=== PATIENT | female | born 1955 | race Caucasian/White ===

== ENCOUNTER 2017-10-30 05:28 | Observation (INO) | payer OTHER ==
--- NOTE | 2017-10-30 06:23 | C.PDOC ---
History Of Present Illness 62 year old female presents to the ER with a complaint of a cough with sputum for the past 3 weeks. Patient has not seen her PMD because she believed it was just a cold; she came in today because she woke up with right sided pleuritic pain. Denies fever or chills. Chief Complaint (Nursing): Chest Pain History Per: Patient History/Exam Limitations: no limitations Onset/Duration Of Symptoms: Days Current Symptoms Are (Timing): Still Present Associated Symptoms: denies: Nausea, Dyspnea, Diaphoresis, Syncope Modifying Factors: None Exacerbating Factors: None Alleviating Factors: None Recent travel outside of the [place]: No Past Medical History Reviewed: Historical Data, Nursing Documentation, Vital Signs Vital Signs: Last Vital Signs Temp 98.1 F 10/30/17 05:45 Pulse 92 H 10/30/17 05:45 Resp 18 10/30/17 05:45 BP 150/70 10/30/17 05:45 Pulse Ox 95 10/30/17 06:26 - Medical History PMH: Asthma Surgical History: Cholecystectomy Family History: States: Unknown Family Hx - Social History Hx Alcohol Use: No Hx Substance Use: No - Immunization History Hx Tetanus Toxoid Vaccination: No Hx Influenza Vaccination: Yes Hx Pneumococcal Vaccination: No Review Of Systems Constitutional: Negative for: Fever, Chills ENT: Negative for: Throat Pain Respiratory: Positive for: Cough, Pleuritic Pain (Right sided), Sputum Gastrointestinal: Negative for: Nausea, Vomiting Physical Exam - Physical Exam Appears: Non-toxic Skin: Normal Color, Warm, Dry Head: Atraumatic, Normacephalic Eye(s): bilateral: Normal Inspection Ear(s): Bilateral: Normal Oral Mucosa: Moist Throat: Normal, No Erythema, No Exudate Neck: Normal, Supple Chest: Symmetrical, No Tenderness Cardiovascular: Rhythm Regular Respiratory: Decreased Breath Sounds, No Rales, No Rhonchi, No Wheezing Gastrointestinal/Abdominal: Soft, No Tenderness Neurological/Psych: Oriented x3, Normal Speech ED Course And Treatment ECG: Interpreted By Me, Viewed By Me ECG Rhythm: Sinus Rhythm ECG Interpretation: Normal Interpretation Of ECG: No acute changes. Rate From EC O2 Sat by Pulse Oximetry: 95 (Room air) Pulse Ox Interpretation: Normal - Radiology CXR: Interpreted by Me, Viewed By Me CXR Interpretation: Yes: No Acute Disease. No: Infiltrates Progress Note: Blood work, EKG, and CXR ordered. Disposition - Disposition Disposition Time: 07:00 Condition: FAIR Forms: [facility] (Serbian) - Clinical Impression Clinical Impression: Chest pain - PA / [employer] / Resident Statement MD/DO has reviewed & agrees with the documentation as recorded. - Scribe Statement The provider has reviewed the documentation as recorded by the Scribe Andres Patel All medical record entries made by the Scribe were at my direction and personally dictated by me. I have reviewed the chart and agree that the record accurately reflects my personal performance of the history, physical exam, medical decision making, and the department course for this patient. I have also personally directed, reviewed, and agree with the discharge instructions and disposition. Physician Patient Turnover Patient Signed Over To: Yamel Sierra Handoff Comments: labs and dispo
[2017-10-30 07:10] LABS: BASO # 0.1 K/uL (0.0-0.2); BASO % 0.5 % (0.0-2.0); EOS # 0.1 K/uL (0.0-0.7); EOS % 0.5 % (0.0-4.0); HEMOGLOBIN 11.7 g/dL (11.0-16.0); LYMPH # 1.3 K/uL (1.0-4.3); LYMPH % 9.7 % (20.0-40.0); MEAN CELL VOLUME 86.4 fL (81.0-99.0); MEAN CORPUSCULAR HEMOGLOBIN 29.4 pg (27.0-31.0); MEAN CORPUSCULAR HGB CONC 34.1 g/dL (33.0-37.0); MONO # 0.8 K/uL (0.0-0.8); NEUT # 11.4 K/uL (1.8-7.0); NEUT % 83.3 % (50.0-75.0); PLATELET COUNT 273 K/uL (130-400); RBC 3.98 Mil/uL (3.80-5.20); RED CELL DISTRIBUTION WIDTH 13.3 % (11.5-14.5); WHITE BLOOD COUNT 13.7 K/uL (4.8-10.8)
[2017-10-30 07:31] LABS: INR 1.1; PROTHROMBIN TIME 12.1 SECONDS (9.7-12.2)
[2017-10-30 07:39] LABS: ALB/GLOB RATIO 0.9 (1.0-2.1); ALBUMIN 4.1 g/dL (3.5-5.0); ALT/SGPT 24 U/L (9-52); AST/SGOT 37 U/L (14-36); BLOOD UREA NITROGEN 12 mg/dL (7-17); CALCIUM 9.3 mg/dl (8.6-10.4); GFR AFRICAN-AMERICAN > 60; GFR NON-AFRICAN AMERICAN > 60
[2017-10-30 07:48] LABS: CK-MB 0.39 ng/mL (0.0-3.38)
[2017-10-30] MEDS ORDERED: MethylPREDNISolone 40 mg Vial IVP STA (07:54)
[2017-10-30] MEDS ORDERED: Albuterol 0.083% Inhal Sol (2.5 mg/3 mL) UD IH STA (07:54)
[2017-10-30] MEDS ORDERED: Albuterol-Ipratrop 3 mg / 0.5 (3 ml) UD ONE (08:01)
[2017-10-30 08:07] LABS: ANISOCYTOSIS SLIGHT; BANDS 4 % (0-2); LYMPHOCYTE 9 % (20-40); MONOCYTE 3 % (0-10); NEUTROPHIL 82 % (50-75); PLATELET ESTIMATE NORMAL (NORMAL); REACTIVE LYMPHOCYTES 2 % (0-0); TOTAL CELLS COUNTED 100; TOXIC GRANULATION PRESENT
[2017-10-30 08:08] LABS: HYPOCHROMIC SLIGHT; LARGE PLATELETS PRESENT; POLYCHROMIC SLIGHT
[2017-10-30] MEDS ORDERED: Albuterol 0.083% Inhal Sol (2.5 mg/3 mL) UD ONE (08:12)
[2017-10-30] MEDS ORDERED: Iodixanol 320 MG/ML 100 ML BOTTLE IV ONE (08:39)
--- NOTE | 2017-10-30 08:40 | RAD ---
Chest x-ray single frontal view History: Pleuritic chest pain. Comparison: None available. Findings: Mild venous congestion. Mild patchy increased markings at the lung bases. Degenerative changes in the spine and shoulders. Impression: Mild venous congestion. Mild patchy increased markings at the lung bases. If there is concern for rib deformity, correlation with rib series would be helpful.
--- NOTE | 2017-10-30 09:41 | CT ---
PROCEDURE: CT Chest with contrast (Pulmonary Angiogram) HISTORY: Pleuritic chest pain. COMPARISON: Comparison made with chest radiograph obtained earlier same day. TECHNIQUE: Axial computed tomography images were obtained of the chest in the pulmonary arterial phase of enhancement. Coronal and sagittal reformatted images were created and reviewed. Intravenous contrast dose: 100 cc Visipaque 320 contrast material. Radiation dose: Total exam DLP = is 170.47 mGy-cm. This CT exam was performed using one or more of the following dose reduction techniques: Automated exposure control, adjustment of the mA and/or kV according to patient size, and/or use of iterative reconstruction technique. FINDINGS: PULMONARY ARTERIES: The visualized pulmonary trunk, right and left main, lobar, segmental and proximal subsegmental branches of the pulmonary arteries are well opacified with no definitive filling defects seen to suggest central pulmonary embolus. The more distal branches are poorly delineated. . AORTA: Ascending thoracic aorta measures approximately 3.05 cm and descending thoracic aorta measures approximately 2.1 cm. . Right brachiocephalic and common carotid artery arise from a common trunk. LUNGS: Atelectasis and/or infiltrate right middle lobe. Multifocal nodular and ground-glass opacities seen in the right lower and upper and left upper lobes concerning for a developing multifocal infiltrates. PLEURAL SPACES: Unremarkable. No effusion or pneumothorax. HEART: Heart is mildly enlarged. No significant pericardial effusion. LYMPH NODES: There is a small sub carinal lymph node measuring approximately 9 mm. Small bilateral. There is a small approximately 13 mm right hilar lymph node with a 2nd adjacent right hilar lymph node measuring 9.2 mm. . There is also a small 10 mm left AP window lymph node. Central airways are midline and patent. No large central endoluminal lesions. BONES, CHEST WALL: Mild multilevel degenerative spondylosis of the thoracic spine. No acute compression fractures no retropulsed fragments. Vertebral bodies exhibit normal stature. OTHER FINDINGS: Unremarkable. IMPRESSION: No evidence of acute central pulmonary embolus. There are atelectatic and or infiltrate changes seen in the right middle lobe with nodular and ground-glass opacities in the right lower and right upper lobe as well as left upper lobe concerning for developing multifocal pneumonia.
[2017-10-30] MEDS ORDERED: Azithromycin 500 MG in Sodium Chloride 0.9% 250 ML IVPB STA (09:57)
[2017-10-30] MEDS ORDERED: cefTRIAXone IV 1 gm in Dextros 50 ML IVPB ONE (10:03)
[2017-10-30] MEDS ORDERED: Azithromycin 500mg/250ML NS 500 MG/250 ML BAG IVPB ONE (10:03)
[2017-10-30 10:30] LABS: URINE BILIRUBIN NEGATIVE (NEGATIVE); URINE BLOOD NEGATIVE (NEGATIVE); URINE CLARITY Clear (Clear); URINE COLOR Colorless (YELLOW); URINE GLUCOSE (UA) NORMAL (Normal); URINE LEUKOCYTE ESTERASE NEG Leu/uL (Negative); URINE PROTEIN NEGATIVE (NEGATIVE); URINE UROBILINOGEN NORMAL mg/dL (0.2-1.0)
--- NOTE | 2017-10-30 10:57 | CP.PCM.HP ---
<Belkis Anne - Last Filed: 10/30/17 11:31> History of Present Illness - History of Present Illness History of Present Illness: Chief Complaint: productive cough Ms. Oliveira is a 62 year old Female with PMH of Asthma who presents to the ED with shortness of breath, productive cough, and generalized weakness. Patient reported feeling ill 3-4 weeks ago, she recovered without any medical intervention. However, her became sick the last 3-4 weeks. Around that time, she started to have the following symptoms: admitted to chills, productive cough with yellow sputum, generalized fatigue and weakness, pleuritic chest pain upon deep inspiration and cough. She did not take any medications. 12 point ROS unremarkable, unless noted above. PMHx: Asthma PSHx: Cholescystectomy, appendectomy Meds: Albuteral HFA as needed uses 1-2 times per month All: NKDA SHx: Denied tobacco, alcohol, or illicit drug use FHx: unremarkable HCM: colonoscopy at age 57 - diverticulosis, last mammogram 2017 birads 2 Present on Admission - Present on Admission Any Indicators Present on Admission: No Past Patient History - Infectious Disease Hx of Infectious Diseases: None - Past Social History Smoking Status: Never Smoked - PULMONARY Hx Asthma: Yes - PSYCHIATRIC Hx Substance Use: No - SURGICAL HISTORY Hx Cholecystectomy: Yes - ANESTHESIA Hx Anesthesia: Yes Hx Anesthesia Reactions: No Hx Malignant Hyperthermia: No Meds Allergies/Adverse Reactions: Allergies Allergy/AdvReac Type Severity Reaction Status Date / Time No Known Allergies Allergy Unverified 10/30/17 05:44 Physical Exam - Constitutional Appears: No Acute Distress - Head Exam Head Exam: NORMAL INSPECTION, NORMOCEPHALIC - Eye Exam Eye Exam: EOMI, Normal appearance, PERRL - ENT Exam ENT Exam: Mucous Membranes Moist - Respiratory Exam Respiratory Exam: Decreased Breath Sounds - Cardiovascular Exam Cardiovascular Exam: REGULAR RHYTHM - GI/Abdominal Exam GI & Abdominal Exam: Normal Bowel Sounds, Soft. absent: Distended, Tenderness - Rectal Exam Rectal Exam: Deferred - Extremities Exam Extremities exam: Positive for: normal inspection, pedal pulses present. Negative for: pedal edema, tenderness - Back Exam Back exam: NORMAL INSPECTION - Neurological Exam Neurological exam: Alert, CN II-XII Intact, Oriented x3 - Psychiatric Exam Psychiatric exam: Normal Affect, Normal Mood - Skin Skin Exam: Dry, Intact, Normal Color, Warm Results - Vital Signs Recent Vital Signs: Last Vital Signs Temp 98.8 F 10/30/17 07:17 Pulse 89 10/30/17 10:56 Resp 20 10/30/17 10:56 BP 121/64 10/30/17 10:56 Pulse Ox 98 10/30/17 10:56 - Labs Result Diagrams: 10/30/17 07:04 10/30/17 07:04 Labs: Laboratory Results - last 24 hr 10/30/17 10/30/17 10/30/17 07:04 07:04 07:04 WBC 13.7 H RBC 3.98 Hgb 11.7 Hct 34.4 MCV 86.4 MCH 29.4 MCHC 34.1 RDW 13.3 Plt Count 273 MPV 8.0 Neut % (Auto) 83.3 H Lymph % (Auto) 9.7 L [place] % (Auto) 6.0 Eos % (Auto) 0.5 Baso % (Auto) 0.5 Neut # (Auto) 11.4 H Lymph # (Auto) 1.3 [place] # (Auto) 0.8 Eos # (Auto) 0.1 Baso # (Auto) 0.1 Neutrophils % (Manual) 82 H Band Neutrophils % 4 H Lymphocytes % (Manual) 9 L Reactive Lymphs % 2 H Monocytes % (Manual) 3 Toxic Granulation Present Platelet Estimate Normal Large Platelets Present Polychromasia Slight Hypochromasia (manual) Slight Anisocytosis (manual) Slight PT 12.1 INR 1.1 APTT 31 D-Dimer, Quantitative 1671 H Sodium 141 Potassium 4.3 Chloride 102 Carbon Dioxide 27 Anion Gap 16 BUN 12 Creatinine 0.5 L Est GFR ( Amer) > 60 Est GFR (Non-Af Amer) > 60 Random Glucose 98 Calcium 9.3 Total Bilirubin 0.5 AST 37 H ALT 24 Alkaline Phosphatase 90 Total Creatine Kinase 39 CK-MB (Mass) 0.39 Troponin I < 0.0120 Total Protein 8.8 H Albumin 4.1 Globulin 4.8 H Albumin/Globulin Ratio 0.9 L Urine Color Urine Clarity Urine pH Ur Specific [place] Urine Protein Urine Glucose (UA) Urine Ketones Urine Blood Urine Nitrate Urine Bilirubin Urine Urobilinogen Ur Leukocyte Esterase Urine WBC (Auto) Influenza Typ A,B (EIA) 10/30/17 10/30/17 10:15 10:25 WBC RBC Hgb Hct MCV MCH MCHC RDW Plt Count MPV Neut % (Auto) Lymph % (Auto) [place] % (Auto) Eos % (Auto) Baso % (Auto) Neut # (Auto) Lymph # (Auto) [place] # (Auto) Eos # (Auto) Baso # (Auto) Neutrophils % (Manual) Band Neutrophils % Lymphocytes % (Manual) Reactive Lymphs % Monocytes % (Manual) Toxic Granulation Platelet Estimate Large Platelets Polychromasia Hypochromasia (manual) Anisocytosis (manual) PT INR APTT D-Dimer, Quantitative Sodium Potassium Chloride Carbon Dioxide Anion Gap BUN Creatinine Est GFR ( Amer) Est GFR (Non-Af Amer) Random Glucose Calcium Total Bilirubin AST ALT Alkaline Phosphatase Total Creatine Kinase CK-MB (Mass) Troponin I Total Protein Albumin Globulin Albumin/Globulin Ratio Urine Color Colorless Urine Clarity Clear Urine pH 6.0 Ur Specific [place] 1.004 Urine Protein Negative Urine Glucose (UA) Normal Urine Ketones Negative Urine Blood Negative Urine Nitrate Negative Urine Bilirubin Negative Urine Urobilinogen Normal Ur Leukocyte Esterase Neg Urine WBC (Auto) < 1 Influenza Typ A,B (EIA) Negative for flu a/b Assessment & Plan - Assessment and Plan (Free Text) Assessment: Ms. Oliveira is a 62 year old Female with PMH of Asthma who presents to the ED with shortness of breath, productive cough, and generalized weakness. Admitted for multifocal pneumonia. Plan: Multifocal Community Acquired Pneumonia Afebrile with leukocytosis, left shift Lungs with decreased breath sounds R> L, no wheezing on exam Imaging/ Labs: CXR: congestion with patchiness CTA Chest: No PE. Showed multifocal pneumonia RML, RLL, SERGIO? Negative Flu Labs sent for mycoplasma, strep pneumo, listeria Will follow up sputum and blood cultures Meds: IVF x 1 bag Analgesics as needed Duonebs Azithromycin and Rocephin started x 7 day course DW Belkis Mae DO, PGY-1 <Cuate Espinosa - Last Filed: 11/01/17 19:34> Results - Vital Signs Recent Vital Signs: Last Vital Signs Temp 98.6 F 11/01/17 16:00 Pulse 80 11/01/17 16:00 Resp 20 11/01/17 16:00 BP 117/69 11/01/17 16:00 Pulse Ox 98 11/01/17 16:00 - Labs Result Diagrams: 11/01/17 11:35 11/01/17 11:35 Labs: Laboratory Results - last 24 hr 11/01/17 11/01/17 11:35 11:35 WBC 7.5 RBC 3.80 Hgb 11.2 Hct 33.1 L MCV 87.3 MCH 29.4 MCHC 33.7 RDW 13.4 Plt Count 287 MPV 7.6 Neut % (Auto) 64.6 Lymph % (Auto) 25.6 [place] % (Auto) 8.2 Eos % (Auto) 1.0 Baso % (Auto) 0.6 Neut # (Auto) 4.9 Lymph # (Auto) 1.9 [place] # (Auto) 0.6 Eos # (Auto) 0.1 Baso # (Auto) 0.0 Sodium 143 Potassium 4.1 Chloride 100 Carbon Dioxide 30 Anion Gap 17 BUN 10 Creatinine 0.5 L Est GFR ( Amer) > 60 Est GFR (Non-Af Amer) > 60 Random Glucose 120 H Calcium 8.9 Total Bilirubin 0.4 AST 23 ALT 21 Alkaline Phosphatase 63 Total Protein 8.6 H Albumin 3.8 Globulin 4.8 H Albumin/Globulin Ratio 0.8 L Attending/Attestation - Attestation I have personally seen and examined this patient.: Yes I have fully participated in the care of the patient.: Yes I have reviewed all pertinent clinical information: Yes Notes (Text): 11/01/17 19:33 Examined the patient at bedside. Reviewed the resident note. Clinically patient has community-acquired pneumonia with pleurisy. Antibiotics started. We'll closely monitor. Will follow the patient
[2017-10-30] MEDS ORDERED: Sodium Chloride 0.9% 1,000 ML IV SCH (11:45)
[2017-10-30] MEDS ORDERED: Sodium Chloride 0.9% 1,000 ML ONE (12:02)
[2017-10-30] MEDS: Albuterol-Ipratrop 3 mg / 0.5 (3 ml) UD INH SCH ×2 (15:37→19:24)
[2017-10-31] MEDS: Albuterol-Ipratrop 3 mg / 0.5 (3 ml) UD INH SCH ×4 (01:34→19:12)
[2017-10-31 07:35] LABS: BASO % 0.2 % (0.0-2.0); EOS % 0.1 % (0.0-4.0); HEMOGLOBIN 10.2 g/dL (11.0-16.0); LYMPH # 2.4 K/uL (1.0-4.3); MEAN CELL VOLUME 86.9 fL (81.0-99.0); MEAN CORPUSCULAR HEMOGLOBIN 29.6 pg (27.0-31.0); MEAN CORPUSCULAR HGB CONC 34.1 g/dL (33.0-37.0); MONO # 0.9 K/uL (0.0-0.8); MONO % 8.7 % (0.0-10.0); NEUT # 7.1 K/uL (1.8-7.0); RBC 3.43 Mil/uL (3.80-5.20); RED CELL DISTRIBUTION WIDTH 13.3 % (11.5-14.5); WHITE BLOOD COUNT 10.4 K/uL (4.8-10.8)
[2017-10-31 08:08] LABS: ALB/GLOB RATIO 0.8 (1.0-2.1); ALBUMIN 3.4 g/dL (3.5-5.0); ALT/SGPT 22 U/L (9-52); AST/SGOT 21 U/L (14-36); BLOOD UREA NITROGEN 14 mg/dL (7-17); CALCIUM 8.9 mg/dl (8.6-10.4); GFR AFRICAN-AMERICAN > 60; GFR NON-AFRICAN AMERICAN > 60
[2017-10-31] MEDS: Lactobacillus Acidophilus 500 MU Cap PO SCH ×3 (09:00→21:25)
[2017-10-31] MEDS: Enoxaparin 40 mg Syringe SC SCH (09:07)
[2017-10-31] MEDS: Azithromycin 500 MG in Sodium Chloride 0.9% 250 ML IVPB SCH (10:47)
--- NOTE | 2017-10-31 17:36 | CP.PCM.PN ---
Subjective - Date & Time of Evaluation Date of Evaluation: 10/31/17 Time of Evaluation: 17:34 - Subjective Subjective: pt feeling better comfortable no chest pain now no wheezing on antibiotic chest clear regular hs abd soft no edema labs noted continue antibiotic will f/u repeat cxr in am Pt with sjogren's now with CAP on antibiotic possible d/c in am Objective - Vital Signs/Intake and Output Vital Signs (last 24 hours): Temp Pulse Resp BP Pulse Ox 98.7 F 80 20 121/70 100 10/31/17 16:00 10/31/17 16:00 10/31/17 16:00 10/31/17 16:00 10/31/17 16:00 Intake and Output: 10/31/17 10/31/17 06:59 18:59 Intake Total 1380 830 Balance 1380 830 - Medications Medications: Current Medications Acetaminophen (Tylenol 325mg Tab) 650 mg PO Q6 PRN PRN Reason: Fever >100.4 F Acetaminophen (Tylenol 325mg Tab) 650 mg PO Q6 PRN PRN Reason: Pain, Mild (1-3) Albuterol/Ipratropium (Duoneb 3 Mg/0.5 Mg (3 Ml) Ud) 3 ml INH RQ6 [facility] Last Admin: 10/31/17 13:18 Dose: 3 ml Enoxaparin Sodium (Lovenox) 40 mg SC DAILY [facility] Last Admin: 10/31/17 09:07 Dose: 40 mg Famotidine (Pepcid) 20 mg PO BID [facility] Last Admin: 10/31/17 09:07 Dose: 20 mg Azithromycin 500 mg/ Sodium (Chloride) 250 mls @ 250 mls/hr IVPB DAILY SERGIO PRN Reason: Protocol Last Admin: 10/31/17 10:47 Dose: 250 mls/hr Ceftriaxone Sodium 1 gm/ (Sodium Chloride) 100 mls @ 100 mls/hr IVPB DAILY [facility] PRN Reason: Protocol Last Admin: 10/31/17 09:08 Dose: 100 mls/hr Ketorolac Tromethamine (Toradol) 30 mg IVP Q6 PRN PRN Reason: Pain, moderate (4-7) Last Admin: 10/30/17 23:34 Dose: 30 mg Lactobacillus Acidophilus (Bacid Acidophilus) 1 cap PO Q12 [facility] Last Admin: 04/07/18 09:07 Dose: Not Given Pneumococcal Polyvalent Vaccine (Pneumovax 23 Vaccine) 0.5 ml IM .ONCE ONE Stop: 11/02/17 10:01 - Labs Labs: 10/31/17 07:27 10/31/17 07:27 PT 12.1 SECONDS (9.7-12.2) 10/30/17 07:04 INR 1.1 10/30/17 07:04 APTT 31 SECONDS (21-34) 10/30/17 07:04
--- NOTE | 2017-10-31 21:05 | CARD ---
APPROVED REPORT EKG Measurement Heart [id number] <Conclusion> Normal sinus rhythm Poor R wave progression to V2 may be positional Borderline ECG
[2017-11-01] MEDS: Albuterol-Ipratrop 3 mg / 0.5 (3 ml) UD INH SCH ×3 (01:21→13:30)
--- NOTE | 2017-11-01 09:11 | RAD ---
Chest x-ray two views History: Pneumonia. Comparison: 10/30/2017 Findings Mild venous congestion. Question mild patchy increased markings at the right lung base. Bibasilar breast and nipple shadows. Heart size within normal limits. Degenerative changes in the spine and shoulders. Surgical clips project over the upper abdomen. Impression: Mild venous congestion. Question mild patchy increased markings at the right lung base. Bibasilar breast and nipple shadows. Heart size within normal limits. Degenerative changes in the spine and shoulders. Surgical clips project over the upper abdomen.
[2017-11-01] MEDS: Enoxaparin 40 mg Syringe SC SCH (09:23)
[2017-11-01] MEDS: Lactobacillus Acidophilus 500 MU Cap PO SCH (09:23)
[2017-11-01 09:39] VITALS: RESP 20
[2017-11-01] MEDS: Azithromycin 500 MG in Sodium Chloride 0.9% 250 ML IVPB SCH (10:33)
[2017-11-01 11:40] LABS: BASO % 0.6 % (0.0-2.0); EOS # 0.1 K/uL (0.0-0.7); HEMOGLOBIN 11.2 g/dL (11.0-16.0); LYMPH # 1.9 K/uL (1.0-4.3); LYMPH % 25.6 % (20.0-40.0); MEAN CELL VOLUME 87.3 fL (81.0-99.0); MEAN CORPUSCULAR HEMOGLOBIN 29.4 pg (27.0-31.0); MEAN CORPUSCULAR HGB CONC 33.7 g/dL (33.0-37.0); MEAN PLATELET VOLUME 7.6 fL (7.2-11.7); MONO # 0.6 K/uL (0.0-0.8); MONO % 8.2 % (0.0-10.0); NEUT # 4.9 K/uL (1.8-7.0); NEUT % 64.6 % (50.0-75.0); RBC 3.8 Mil/uL (3.80-5.20); RED CELL DISTRIBUTION WIDTH 13.4 % (11.5-14.5); WHITE BLOOD COUNT 7.5 K/uL (4.8-10.8)
[2017-11-01 11:50] LABS: BLOOD UREA NITROGEN 10 mg/dL (7-17); GFR AFRICAN-AMERICAN > 60; GFR NON-AFRICAN AMERICAN > 60
[2017-11-01 11:51] LABS: ALB/GLOB RATIO 0.8 (1.0-2.1); ALBUMIN 3.8 g/dL (3.5-5.0); ALT/SGPT 21 U/L (9-52); AST/SGOT 23 U/L (14-36); CALCIUM 8.9 mg/dl (8.6-10.4)
[2017-11-01 16:14] VITALS: BP 117/69; PULSE 80; TEMP 98.6; O2SAT 98
--- NOTE | 2017-11-01 18:50 | CP.PCM.DIS ---
Provider - Provider Date of Admission: 10/30/17 09:58 Attending physician: Cuate Espinosa MD Time Spent in preparation of Discharge (in minutes): 45 Hospital Course - Lab Results Lab Results: Micro Results 10/30/17 09:57 Sputum Gram Stain - Final 10/30/17 09:57 Sputum Sputum Culture - Preliminary Gram Negative Brenden 10/30/17 09:58 Blood Blood Culture - Preliminary NO GROWTH AFTER 48 HOURS 10/30/17 09:58 Blood Blood Culture - Preliminary NO GROWTH AFTER 48 HOURS 10/30/17 10:25 Urine Urine Culture - Final No Growth (<1,000 CFU/ML) Most Recent Lab Values WBC 7.5 K/uL (4.8-10.8) 11/01/17 11:35 RBC 3.80 Mil/uL (3.80-5.20) 11/01/17 11:35 Hgb 11.2 g/dL (11.0-16.0) 11/01/17 11:35 Hct 33.1 % (34.0-47.0) L 11/01/17 11:35 MCV 87.3 fL (81.0-99.0) 11/01/17 11:35 MCH 29.4 pg (27.0-31.0) 11/01/17 11:35 MCHC 33.7 g/dL (33.0-37.0) 11/01/17 11:35 RDW 13.4 % (11.5-14.5) 11/01/17 11:35 Plt Count 287 K/uL (130-400) 11/01/17 11:35 MPV 7.6 fL (7.2-11.7) 11/01/17 11:35 Neut % (Auto) 64.6 % (50.0-75.0) 11/01/17 11:35 Lymph % (Auto) 25.6 % (20.0-40.0) 11/01/17 11:35 [place] % (Auto) 8.2 % (0.0-10.0) 11/01/17 11:35 Eos % (Auto) 1.0 % (0.0-4.0) 11/01/17 11:35 Baso % (Auto) 0.6 % (0.0-2.0) 11/01/17 11:35 Neut # (Auto) 4.9 K/uL (1.8-7.0) 11/01/17 11:35 Lymph # (Auto) 1.9 K/uL (1.0-4.3) 11/01/17 11:35 [place] # (Auto) 0.6 K/uL (0.0-0.8) 11/01/17 11:35 Eos # (Auto) 0.1 K/uL (0.0-0.7) 11/01/17 11:35 Baso # (Auto) 0.0 K/uL (0.0-0.2) 11/01/17 11:35 Neutrophils % (Manual) 82 % (50-75) H 10/30/17 07:04 Band Neutrophils % 4 % (0-2) H 10/30/17 07:04 Lymphocytes % (Manual) 9 % (20-40) L 10/30/17 07:04 Reactive Lymphs % 2 % (0-0) H 10/30/17 07:04 Monocytes % (Manual) 3 % (0-10) 10/30/17 07:04 Toxic Granulation Present 10/30/17 07:04 Platelet Estimate Normal (NORMAL) 10/30/17 07:04 Large Platelets Present 10/30/17 07:04 Polychromasia Slight 10/30/17 07:04 Hypochromasia (manual) Slight 10/30/17 07:04 Anisocytosis (manual) Slight 10/30/17 07:04 PT 12.1 SECONDS (9.7-12.2) 10/30/17 07:04 INR 1.1 10/30/17 07:04 APTT 31 SECONDS (21-34) 10/30/17 07:04 D-Dimer, Quantitative 1671 ng/mlDDU (0-243) H 10/30/17 07:04 Sodium 143 mmol/L (132-148) 11/01/17 11:35 Potassium 4.1 mmol/L (3.6-5.2) 11/01/17 11:35 Chloride 100 mmol/L (98-107) 11/01/17 11:35 Carbon Dioxide 30 mmol/L (22-30) 11/01/17 11:35 Anion Gap 17 (10-20) 11/01/17 11:35 BUN 10 mg/dL (7-17) 11/01/17 11:35 Creatinine 0.5 mg/dL (0.7-1.2) L 11/01/17 11:35 Est GFR ( Amer) > 60 11/01/17 11:35 Est GFR (Non-Af Amer) > 60 11/01/17 11:35 Random Glucose 120 mg/dL (65-105) H 11/01/17 11:35 Calcium 8.9 mg/dl (8.6-10.4) 11/01/17 11:35 Total Bilirubin 0.4 mg/dL (0.2-1.3) 11/01/17 11:35 AST 23 U/L (14-36) 11/01/17 11:35 ALT 21 U/L (9-52) 11/01/17 11:35 Alkaline Phosphatase 63 U/L (38-126) 11/01/17 11:35 Total Creatine Kinase 39 U/L (30-135) 10/30/17 07:04 CK-MB (Mass) 0.39 ng/mL (0.0-3.38) 10/30/17 07:04 Troponin I < 0.0120 ng/mL (0.00-0.120) 10/30/17 07:04 Total Protein 8.6 g/dL (6.3-8.3) H 11/01/17 11:35 Albumin 3.8 g/dL (3.5-5.0) 11/01/17 11:35 Globulin 4.8 gm/dL (2.2-3.9) H 11/01/17 11:35 Albumin/Globulin Ratio 0.8 (1.0-2.1) L 11/01/17 11:35 Urine Color Colorless (YELLOW) 10/30/17 10:15 Urine Clarity Clear (Clear) 10/30/17 10:15 Urine pH 6.0 (5.0-8.0) 10/30/17 10:15 Ur Specific [place] 1.004 (1.003-1.030) 10/30/17 10:15 Urine Protein Negative mg/dL (NEGATIVE) 10/30/17 10:15 Urine Glucose (UA) Normal mg/dL (Normal) 10/30/17 10:15 Urine Ketones Negative mg/dL (NEGATIVE) 10/30/17 10:15 Urine Blood Negative (NEGATIVE) 10/30/17 10:15 Urine Nitrate Negative (NEGATIVE) 10/30/17 10:15 Urine Bilirubin Negative (NEGATIVE) 10/30/17 10:15 Urine Urobilinogen Normal mg/dL (0.2-1.0) 10/30/17 10:15 Ur Leukocyte Esterase Neg Randy/uL (Negative) 10/30/17 10:15 Urine WBC (Auto) < 1 /hpf (0-5) 10/30/17 10:15 Influenza Typ A,B (EIA) Negative for flu a/b (NEGATIVE) 10/30/17 10:25 Ur L.pneumophila Ag Negative (NEGATIVE) 10/30/17 20:54 Mycoplasma pneumon IgM Negative (NEGATIVE) 10/30/17 12:01 - Hospital Course Hospital Course: Chief Complaint: productive cough Ms. Oliveira is a 62 year old Female with PMH of Asthma who presents to the ED with shortness of breath, productive cough, and generalized weakness. Patient reported feeling ill 3-4 weeks ago, she recovered without any medical intervention. However, her became sick the last 3-4 weeks. Around that time, she started to have the following symptoms: admitted to chills, productive cough with yellow sputum, generalized fatigue and weakness, pleuritic chest pain upon deep inspiration and cough. She did not take any medications. 12 point ROS unremarkable, unless noted above. PMHx: Asthma PSHx: Cholescystectomy, appendectomy Meds: Albuteral HFA as needed uses 1-2 times per month All: NKDA SHx: Denied tobacco, alcohol, or illicit drug use FHx: unremarkable HCM: colonoscopy at age 57 - diverticulosis, last mammogram 2017 birads 2 on examination: Chest bilateral good air entry noted Minimal expiratory wheezing noted. Regular heart sound nontender abdominal pedal edema Patient hospitalized with acute commuted to pneumonia with severe pleuritic chest pain. Patient started on intravenous Solu-Medrol, Rocephin and Zithromax. Patient clinically feeling much better, her symptoms are improved markedly. No wheezing noted. Appetite is back. Less cough, less mucus noted. Sputum culture showing gram-negative rods, the identity is pending Assessment: 62-year-old female with a history of asthma, recently diagnosed with Sjogren syndrome admitted with a committed to pneumonia. Pleurisy about the pleuritic chest pain. Patient is markedly improving with antibiotic Sputum culture positive for gram-negative brenden, identity is pending Given the gram-negative UTI at this patient to start Levaquin by mouth daily for 7 days 750 mg. Once the identity is available as an outpatient, I will try to change the antibiotic. I will follow the patient in one week. Advice at take Rest Discharge Exam - Head Exam Head Exam: NORMAL INSPECTION, NORMOCEPHALIC Discharge Plan - Discharge Medications Prescriptions: levoFLOXacin [Levaquin] 750 mg PO DAILY #7 tab RX: Famotidine [Pepcid] 20 mg PO DAILY #30 tab - Follow Up Plan Condition: FAIR Disposition: HOME/ ROUTINE Instructions: Chest Pain That Is Not Caused by the Heart (DC), Levofloxacin ( Systemic), Pneumonia, Adult (DC), Famotidine Referrals: Cuate Espinosa MD [Staff Provider] -
[2017-11-02] MEDS ORDERED: Pneumococcal 23-Valent Vaccine IM ONE (10:00)
== END 2017-11-01 19:56 | disposition home or self-care (01) ==
LOC: C.ER 05:28 → C.9E 09:58 → INTOOBSV 09:58 → C.3T 14:09
PROVIDERS: ADMIT Internal Medicine; ATTEND Internal Medicine
DX: J18.9 Pneumonia, unspecified organism (principal); N39.0 Urinary tract infection, site not specified; B96.89 Other specified bacterial agents as the cause of diseases classified elsewhere; J45.909 Unspecified asthma, uncomplicated; M35.00 Sjogren syndrome, unspecified; R09.1 Pleurisy
CPT/HCPCS: 36415; 71045; 71046; 71275; 80053; 81001; 82550; 82553; 84484; 85025; 85378; 85610; 85730; 86609; 86738; 87040; 87070; 87086; 87181; 87449; 87804; 87899; 93005; 94640; 96365; 96367; 96375; 99285; G0378; J0456; J0696; J1650; J1885; J2920; J7040; J7050; Q9967